=== PATIENT | male | born 2005 ===

== ENCOUNTER 2024-01-08 03:41 | Emergency (ER) | payer BC, SELFPAY ==
--- OUTSIDE RECORDS SUMMARY | 2024-01-08 03:45 | XMS REPORT | Continuity of Care Document ---
Author Name Unknown Address [address] [facility] [address] [place] [address] [facility] thconnect Address [address] [facility] [address] [place] [address] Care Team Providers Care Oracle Data Warehouse Developer Name Role Phone Provider, Unknown Home Health Primary Care Physi BEBETO Grant Attending Clinician Laney Rodriguez Attending Clinician [phone] Payers Payer Name Policy Type Policy Number Effective Date Expirati on Date Source [place] AND OUT OF STATE [id number] 2021 00:00:00 Problems Condition Name Condition Details Condition Category Status Onset Date Resolution Date Last Treatment Date Treating Clinician Comments Source Displaced comminuted supracondy lar fracture without intercondy lar fracture of left humerus, initial encounter for closed fracture Displaced comminuted supracondy lar fracture without intercondy lar fracture of left humerus, initial encounter for closed fracture Disease Active 01-06 00:00: 00 [facility] Displaced fracture of olecranon process with intraartic ular extension of left ulna, initial encounter for closed fracture Displaced fracture of olecranon process with intraartic ular extension of left ulna, initial encounter for closed fracture Disease Active 01-06 00:00: 00 [facility] Social History Social Habit Start Date Stop Date Quantity Comments Source Sexual orientation [facility] Sex assigned at 2005 00:00:00 2005 00:00:00 [facility] Smoking Status Start Date Stop Date Source Tobacco smoking consumption unknown [facility] Encounters Start Date/Time End Date/Time Encounter Type Admission Type Attending Clinicians Care Facility Care Department Encounter ID Source 2023-09-16 11:15:00 2023-09-16 11:15:00 Outpatient BEBETO SEVERINO [facility] [id number] [facility] 2023-09-09 12:00:00 2023-09-09 13:16:[address] [facility] [id number] [facility] 2023-09-09 12:00:00 2023-09-09 13:16:52 Office Visit Laney Melendez [facility] [address] [id number] [facility] 2023-03-18 11:30:00 2023-03-18 11:30:00 Outpatient BEBETO SEVERINO [facility] [id number] [facility] 2023-03-18 11:30:00 2023-03-18 11:30:[address] [facility] [id number] [facility] 2023-02-11 10:45:00 2023-02-11 11:46:06 Office Visit Laney Melendez [facility] [address] [facility] [id number] [facility] 2023-02-11 10:45:00 2023-02-11 11:46:[address] [facility] [id number] [facility] 2023-02-04 09:45:00 2023-02-04 09:45:00 Outpatient BEBETO SEVERINO [facility] [id number] [facility] 2023-02-04 09:45:00 2023-02-04 09:45:[address] [facility] [id number] [facility] 2023-01-07 09:15:00 2023-01-07 10:04:59 Office Visit Bebeto Severino [facility] [address] [id number] [facility] 2022-12-19 08:00:00 2022-12-19 08:00:00 Outpatient BEBETO SEVERINO [facility] [id number] [facility]
[2024-01-08] MEDS ORDERED: METHYLPREDNISOLONE 125 MG INJ ONE (04:48)
[2024-01-08] MEDS ORDERED: DIPHENHYDRAMINE 50 MG/ML VIAL ONE (04:49)
[2024-01-08] MEDS ORDERED: NA CHLORIDE 0.9% 1,000 ML ONE (04:49)
[2024-01-08] MEDS ORDERED: FAMOTIDINE 20 MG/2 ML VIAL IV ONE (04:49)
--- NOTE | 2024-01-08 05:34 | ER ---
Nurse's Notes [facility] Name: Don Bellamy Age: 18 yrs Sex: Male : 2005 Arrival Date: 01/08/2024 Time: 03:41 Bed 14 Private MD: Diagnosis: Acute allergic hives Presentation: 01/07 04:29 Chief complaint: Patient states: had a tetanus shot on the and yesterday started vc1 breaking out in hives and it keeps keeping worse. Coronavirus screen: Client denies travel out of the [place] in the last 14 days. At this time, the client does not indicate any symptoms associated with coronavirus-19. Ebola Screen: Patient negative for fever greater than or equal to 101.5 degrees Fahrenheit, and additional compatible Ebola Virus Disease symptoms Patient denies exposure to infectious person. Patient denies travel to an Ebola-affected area in the 21 days before illness onset. No symptoms or risks identified at this time. Onset: The symptoms/episode began/occurred gradually. Anaphylaxis evaluation, no signs or symptoms of anaphylaxis were noted. Initial Sepsis Screen: Does the patient meet any 2 criteria? No. Patient's initial sepsis screen is negative. Does the patient have a suspected source of infection? No. Patient's initial sepsis screen is negative. Risk Assessment: Do you want to hurt yourself or someone else? Patient reports no desire to harm self or others. Onset of symptoms was January 07, 2024. 04:29 Method Of Arrival: Ambulatory vc1 04:29 Acuity: AL 3 vc1 Triage Assessment: 04:33 General: Appears in no apparent distress. comfortable, slender, well groomed, well vc1 developed, well nourished, Behavior is calm, cooperative, appropriate for age. Pain: Denies pain. EENT: No deficits noted. No signs and/or symptoms were reported regarding the EENT system. Neuro: Level of Consciousness is awake, alert, obeys commands, Oriented to person, place, time, situation, Appropriate for age. Cardiovascular: No deficits noted. Respiratory: Airway is patent Respiratory effort is even, unlabored, Respiratory pattern is regular, symmetrical, Breath sounds are clear bilaterally. GI: No deficits noted. No signs and/or symptoms were reported involving the gastrointestinal system. : No deficits noted. No signs and/or symptoms were reported regarding the genitourinary system. Derm: Skin is intact, is healthy with good turgor, Skin is dry, Skin is normal, Skin temperature is warm Rash noted that is itchy, red, raised, urticaria, Reports itching. Musculoskeletal: No deficits noted. No signs and/or symptoms reported regarding the musculoskeletal system. Circulation, motion, and sensation intact. Range of motion: intact in all extremities. Historical: - Allergies: 04:32 No Known Allergies; vc1 - Home Meds: 04:32 None [Active]; vc1 - PMHx: 04:32 None; vc1 - PSHx: 04:32 None; vc1 - Immunization history:: Client reports receiving the 2nd dose of the Covid vaccine. - Infectious Disease History:: Denies. - Social history:: Smoking status: Reported history of juuling and/or vaping. - Family history:: not pertinent. Screenin:33 [facility] ED Fall Risk Assessment (Adult) History of falling in the last 3 months, vc1 including since admission No falls in past 3 months (0 pts) Confusion or Disorientation No (0 pts) Intoxicated or Sedated No (0 pts) Impaired Gait No (0 pts) Mobility Assist Device Used No (0 pt) Altered Elimination No (0 pt) Score/Fall Risk Level 0 - 2 = Low Risk Oriented to surroundings, Maintained a safe environment, Educated pt \T\ family on fall prevention, incl call for assistance when getting out of bed. Abuse screen: Denies threats or abuse. Nutritional screening: No deficits noted. Tuberculosis screening: No symptoms or risk factors identified. Assessment: 04:33 Pain: Denies pain. Respiratory: Airway is patent Respiratory effort is even, unlabored, vc1 Respiratory pattern is regular, symmetrical, Breath sounds are clear bilaterally. Vital Signs: 04:29 BP 116 / 91; Pulse 67; Resp 14; Temp 97.6; Pulse Ox 100% ; Weight 69.85 kg; Height 6 vc1 ft. 0 in. ; Pain 0/10; 05:00 BP 128 / 94; Pulse 70; Resp 16; Pulse Ox 100% ; cp4 05:50 BP 125 / 87; Pulse 56; Resp 16; Pulse Ox 99% ; cp4 04:29 Body Mass Index 20.89 (69.85 kg, 182.88 cm) - Percentile 24.5 % vc1 04:29 Pain Scale: Adult vc1 [place] Coma Score: 05:30 Eye Response: spontaneous(4). Motor Response: obeys commands(6). Verbal Response: sp4 oriented(5). Total: 15. ED Course: 03:49 Patient arrived in ED. gm2 04:26 Dominguez Love MD is Attending Physician. sp4 04:28 Inserted saline lock: 20 gauge in right antecubital area, using aseptic technique. vc1 Flushed with 10 mL NS. 04:32 Triage completed. vc1 04:32 Arm band placed on right wrist. vc1 04:33 Patient has correct armband on for positive identification. Bed in low position. Call vc1 light in reach. Pulse ox on. NIBP on. 04:40 Dilcia Henriquez is Primary Nurse. cp4 05:51 No provider procedures requiring assistance completed. intact, bleeding controlled, No cp4 redness/swelling at site. Pressure dressing applied. 05:51 Provided Education on: hives. cp4 Administered Medications: 05:00 Drug: NS 0.9% IV 1000 ml IV at 1 bolus Per protocol; 1000 mL bolus Route: IV; Rate: 1 cp4 bolus; Site: right antecubital; 05:49 Follow up: Response: No adverse reaction; IV Status: Completed infusion cp4 05:01 Drug: MethylPrednisoLONE IVP 125 mg IVP once Route: IVP; Site: right antecubital; cp4 05:30 Follow up: Response: No adverse reaction cp4 05:01 Drug: Famotidine IVP 20 mg IVP once; dilute with 10 mL 0.9% NaCl; give over 2 minutes cp4 Route: IVP; Site: right antecubital; 05:30 Follow up: Response: No adverse reaction cp4 05:01 Drug: diphenhydrAMINE IVP 50 mg IVP once Route: IVP; Site: right antecubital; cp4 05:30 Follow up: Response: No adverse reaction cp4 05:49 Not Given (Patient could not find ride home.): diazepam5 mg PO once cp4 Medication: 04:33 VIS not applicable for this client. vc1 Outcome: 05:34 Discharge ordered by . sp4 05:51 Discharged to home ambulatory, cp4 05:51 Condition: stable 05:51 Discharge instructions given to patient, Instructed on discharge instructions, follow up and referral plans. medication usage, Demonstrated understanding of instructions, follow-up care, medications, Prescriptions given X 2, 05:52 Patient left the ED. cp4 Signatures: Bernadette Ziegler RN RN 1 Dominguez Love MD MD sp4 Dilcia Henriquez cp4 Meaghan Linda 2
--- NOTE | 2024-01-08 05:35 | EDPHYS ---
Physician Documentation [facility] Name: Don Bellamy Age: 18 yrs Sex: Male : 2005 Arrival Date: 01/08/2024 Time: 03:41 Bed 14 Private MD: ED Physician Dominguez Love HPI: 01/07 05:30 This 18 yrs old Male presents to ER via Ambulatory with complaints of Allergic sp4 Reaction, Rash. 05:30 18-year-old male presents with acute hives secondary to presumed reaction to Tdap. sp4 Patient states he was given Tdap in [place] 01/05/2024, in [facility] patient was treated for acute head injury and laceration to the forehead and was given Tdap. Patient since then has developed some hives diffusely and presents here with a rash and hives. . Historical: - Allergies: 04:32 No Known Allergies; vc1 - Home Meds: 04:32 None [Active]; vc1 - PMHx: 04:32 None; vc1 - PSHx: 04:32 None; vc1 - Immunization history:: Client reports receiving the 2nd dose of the Covid vaccine. - Infectious Disease History:: Denies. - Social history:: Smoking status: Reported history of juuling and/or vaping. - Family history:: not pertinent. ROS: 05:30 Constitutional: Negative for fever, chills, and weight loss, Skin: Positive rash and sp4 hives 05:30 All other systems are negative, Exam: 05:30 Constitutional: This is a well developed, well nourished patient who is awake, alert, sp4 and in no acute distress. Head/Face: Normocephalic, atraumatic. Eyes: Pupils equal round and reactive to light, extra-ocular motions intact. Lids and lashes normal. Conjunctiva and sclera are not injected. Cornea within normal limits. Periorbital areas with no swelling, redness, or edema. ENT: Nares patent. No nasal discharge, no septal abnormalities noted. Tympanic membranes are normal and external auditory canals are clear. Oropharynx with no redness, swelling, or masses, exudates, or evidence of obstruction, uvula midline. Mucous membranes moist. Neck: Trachea midline, no thyromegaly or masses palpated, and no cervical lymphadenopathy. Supple, full range of motion without nuchal rigidity, or vertebral point tenderness. Chest/axilla: Normal chest wall appearance and motion. Nontender with no deformity. No lesions are appreciated. Cardiovascular: Regular rate and rhythm with a normal S1 and S2. No gallops, murmurs, or rubs. Normal PMI, no JVD. No pulse deficits. Respiratory: Lungs have equal breath sounds bilaterally, clear to auscultation and percussion. No rales, rhonchi or wheezes noted. No increased work of breathing, no retractions or nasal flaring. Abdomen/GI: Soft, with normal bowel sounds. No distension or tympany. No guarding or rebound. No evidence of tenderness throughout. Back: No spinal tenderness. No costovertebral tenderness. Skin: Warm, dry with normal turgor. Normal color with mild diffuse hives present. MS/ Extremity: Pulses equal, no cyanosis. Neurovascular intact. Full, normal range of motion. Neuro: Awake and alert, GCS 15, oriented to person, place, time, and situation. Cranial nerves II-XII grossly intact. Motor strength 5/5 in all extremities. Sensory grossly intact. Psych: Awake, alert, with orientation to person, place and time. Behavior, mood, and affect are within normal limits Vital Signs: 04:29 BP 116 / 91; Pulse 67; Resp 14; Temp 97.6; Pulse Ox 100% ; Weight 69.85 kg; Height 6 vc1 ft. 0 in. ; Pain 0/10; 05:00 BP 128 / 94; Pulse 70; Resp 16; Pulse Ox 100% ; cp4 05:50 BP 125 / 87; Pulse 56; Resp 16; Pulse Ox 99% ; cp4 04:29 Body Mass Index 20.89 (69.85 kg, 182.88 cm) - Percentile 24.5 % vc1 04:29 Pain Scale: Adult vc1 [place] Coma Score: 05:30 Eye Response: spontaneous(4). Motor Response: obeys commands(6). Verbal Response: sp4 oriented(5). Total: 15. MDM: 04:27 Patient medically screened. sp4 05:30 Differential diagnosis: Hereditary Angioedema urticaria, Vasovagal Reactions. Data sp4 reviewed: vital signs, nurses notes. ED course: Stable for discharge home with PO Prednisone . 01/07 04:27 Order name: Saline Lock; Complete Time: 04:40 sp4 Administered Medications: 05:00 Drug: NS 0.9% IV 1000 ml IV at 1 bolus Per protocol; 1000 mL bolus Route: IV; Rate: 1 cp4 bolus; Site: right antecubital; 05:49 Follow up: Response: No adverse reaction; IV Status: Completed infusion cp4 05:01 Drug: MethylPrednisoLONE IVP 125 mg IVP once Route: IVP; Site: right antecubital; cp4 05:30 Follow up: Response: No adverse reaction cp4 05:01 Drug: Famotidine IVP 20 mg IVP once; dilute with 10 mL 0.9% NaCl; give over 2 minutes cp4 Route: IVP; Site: right antecubital; 05:30 Follow up: Response: No adverse reaction cp4 05:01 Drug: diphenhydrAMINE IVP 50 mg IVP once Route: IVP; Site: right antecubital; cp4 05:30 Follow up: Response: No adverse reaction cp4 05:49 Not Given (Patient could not find ride home.): diazepam5 mg PO once cp4 Disposition Summary: 01/08/24 05:34 Discharge Ordered Notes: Location: Home sp4 Problem: new sp4 Symptoms: have improved sp4 Condition: Stable sp4 Diagnosis - Acute allergic hives sp4 Followup: sp4 - With: Private Physician - When: 7 - 10 days - Reason: Recheck today's complaints Discharge Instructions: - Discharge Summary Sheet sp4 - Hives, [id number] sp4 Forms: - Patient Portal Instructions sp4 Prescriptions: - Benadryl 25 mg Oral Capsule - take 1 capsule ORAL route every 6 hours As needed; 30 tablet; Refills: 0, sp4 Product Selection Permitted - Prednisone 20 mg Oral Tablet - take 2 tablets ORAL route once daily for 5 days; 10 tablet; Refills: 0, Product sp4 Selection Permitted Signatures: Bernadette Ziegler RN RN vc1 Dominguez Love MD MD sp4 Dilcia Henriquez cp4
[2024-01-08 06:10] VITALS: TEMP 97.6
[2024-01-08 06:16] VITALS: BP 125/87; O2SAT 99
== END 2024-01-08 05:52 | disposition home or self-care (01) ==
LOC: ER 03:41
DX: L50.0 Allergic urticaria (principal)
CPT/HCPCS: 96361; 96374; 96375; 99284; J1200; J2919; J7030